=== PATIENT | male | born 1950 | race Two or more races ===

== ENCOUNTER 2024-11-17 20:42 | Emergency (ER) | payer MEDICARE, OTHER ==
[~2024-11-17] VITALS: Ht 167.6 cm; Wt 63.5 kg
[2024-11-17] MEDS ORDERED: CEPHALEXIN MONOHYDRATE 500 MG CAPSULE PO ONE (21:14)
[2024-11-17] MEDS: SULFAMETH/TRIMETH 800/160 MG 1 UDTAB TABLET PO ONE (21:14)
[2024-11-17] MEDS ORDERED: SULFAMETH/TRIMETH 800/160 MG 1 UDTAB TABLET ONE (21:14)
[2024-11-17] MEDS: CEPHALEXIN MONOHYDRATE 500 MG CAPSULE PO ONE (21:15)
[2024-11-17] MEDS ORDERED: AMLO-213 PO (21:18)
[2024-11-17] MEDS ORDERED: SULF1TAB48 PO (21:18)
[2024-11-17] MEDS ORDERED: CEPH500C2 PO (21:18)
[2024-11-17 21:36] LABS: PLATELET COUNT (AUTO) 144 K/uL (150-450); RED BLOOD CELL COUNT(AUTO) 4.48 MIL/uL (4.5-6.0); RED CELL DISTRIBUTION WIDTH 13.8 % (11.5-15.0); WHITE BLOOD COUNT (AUTO) 4.7 K/uL (4.3-11.0)
[2024-11-17 21:42] LABS: CALCIUM, SERUM 8.3 mg/dL (8.5-10.1); CREATININE 1.1 mg/dL (0.6-1.3); SODIUM SERUM 141.0 mmol/L (136-145); UREA NITROGEN, BLOOD 24.0 mg/dL (7-18)
[2024-11-17 21:54] VITALS: BP 142/89; TEMP 98.6; O2SAT 97
== END 2024-11-17 21:55 | disposition home or self-care (01) ==
LOC: ER 21:05
DX: S60.511A Abrasion of right hand, initial encounter (principal); L03.113 Cellulitis of right upper limb; E11.9 Type 2 diabetes mellitus without complications; I10 Essential (primary) hypertension; X58.XXXA Exposure to other specified factors, initial encounter; Y93.89 Activity, other specified; Y92.89 Other specified places as the place of occurrence of the external cause; Y99.8 Other external cause status
CPT/HCPCS: 36415; 80048-TC; 85025-TC